=== PATIENT | male | born 1950 | race Two or more races ===

== ENCOUNTER 2024-03-13 08:25 | Outpatient (AMB) | payer OTHER, SELFPAY ==
--- NOTE | 2024-03-13 08:33 | A.OFFVIS_ITS ---
Vital Signs 03/13/24 08:35 Height 5 ft 10 in Weight 224 lb 6.889 oz BMI 32.2 BP 122/74 Blood Pressure Location Lt brachial Pulse 61 Pulse Source Pulse Oximeter Pulse Oximetry (%) 96 Oxygen Delivery Method Room Air Intake Visit Reasons: RA/CM apt Intake Note: Patient presents for follow up on RA today. Allergies No Known Allergies Allergy (Verified 03/13/24 08:36) HPI HPI RA/CM apt: Details: Overdue for RTX by a month. Hard to make a fist. He has swelling in ankles, kn ees and hands daily. MS 1-1.5h Goes to the gym everyday He saw pulmonology a month ago. He reports he also had PFTs and CT chest done. Breathing is stable. [facility] Medical History (Updated 03/13/24 @ 09:28 by Bobby De Guzman MD) Rotator cuff disorder Diverticulitis ILD (interstitial lung disease) COPD (chronic obstructive pulmonary disease) Rheumatoid arthritis Surgical History (Updated 03/13/24 @ 08:41 by Georgie Iyer CMA) History of total left knee replacement Family History (Updated 03/13/24 @ 08:43 by Georgie Iyer CMA) Father Colon cancer Mother Elephantiasis Stroke Social History (Updated 03/13/24 @ 08:43 by Georgie Iyer CMA) Alcohol intake: never Patient Tobacco Use Status: Current everyday Tobacco user Cigarette Packs Per Day: 10 Review of Systems Const All systems reviewed & are unremarkable except as noted in HPI and below Physical Exam Vital Signs: Last Vital Signs Pulse 61 03/13/24 08:35 BP 122/74 03/13/24 08:35 Pulse Ox 96 03/13/24 08:35 Oxygen Delivery Method Room Air 03/13/24 08:35 BMI result Body Mass Index 32.2 Const Other: General: Comfortable CVS: RRR Respiratory: clear to auscultation bilaterally. Good respiratory effort Skin: No lesions seen MSK: No tenderness of any joints. Ulnar deviation right hand right more pronounced than left hand. No synovitis. He is able to make a fist with both hands. Good range of motion of upper extremities and lower extremities. Assessment & Plan Assessment & Plan (1) Rheumatoid arthritis: Comment: History of rheumatoid arthritis with interstitial lung disease controlled on rituximab. He is overdue for rituximab by a month and has been experiencing increased joint pains and stiffness. Code(s): M06.9 - Rheumatoid arthritis, unspecified Category: Medical Plan: [facility] including last rituximab order with pretreatment given. As soon as it is received, I will order rituximab to be done at [facility] for disease and drug monitoring on high-risk medication ordered He will use prednisone 10 mg daily for a few days until joint pain and stiffness resolves. He is aware to use prednisone sparingly He will continue to use Tylenol 1300 mg at bedtime I am requesting pulmonology records of his last clinic note, CT and PFTs Return to clinic in 3 months (2) Other residential (current) drug therapy: Code(s): Z79.899 - Other adjunct faculty for medical terminology (current) drug therapy Category: Medical Plan: See above Orders: Orders Aspartate Amino Transferase 03/13/24 M06.9 - Rheumatoid arthritis, unspecified, Z79.899 - Other residential (current) drug therapy C Reactive Protein 03/13/24 M06.9 - Rheumatoid arthritis, unspecified, Z79.899 - Other adjunct faculty for medical terminology (current) drug therapy Erythrocyte Sedimentation Rate 03/13/24 M06.9 - Rheumatoid arthritis, unspecified, Z79.899 - Other adjunct faculty for medical terminology (current) drug therapy Hepatitis B,C Profile 03/13/24 M06.9 - Rheumatoid arthritis, unspecified, Z79.899 - Other residential (current) drug therapy T Spot TB 03/13/24 M06.9 - Rheumatoid arthritis, unspecified, Z79.899 - Other adjunct faculty for medical terminology (current) drug therapy Complete Blood Count Auto Diff 03/13/24 M06.9 - Rheumatoid arthritis, unspecified, Z79.899 - Other adjunct faculty for medical terminology (current) drug therapy Cyclic Citrullinated Peptide 03/13/24 M06.9 - Rheumatoid arthritis, unspecified, Z79.899 - Other residential (current) drug therapy TSH reflex Free T4 03/13/24 M06.9 - Rheumatoid arthritis, unspecified, Z79.899 - Other residential (current) drug therapy Alanine Aminotransferase 03/13/24 Z79.899 - Other adjunct faculty for medical terminology (current) drug therapy Creatinine 03/13/24 M06.9 - Rheumatoid arthritis, unspecified, Z79.899 - Other residential (current) drug therapy Rheumatoid Factor 03/13/24 M06.9 - Rheumatoid arthritis, unspecified, Z79.899 - Other adjunct faculty for medical terminology (current) drug therapy Medications: New prednisone Take 1 tablet daily for a few days until rheumatoid arthritis flare resolves 10 mg PO DIRECTED 30 tabs 0RF Coding Level of Care Code Est Pt Level 4 (71120) Complex EM visit Add On G2211 Diagnoses Rheumatoid arthritis M06.9 Other residential (current) drug therapy Z79.899
[2024-03-13 08:35] VITALS: BP 122/74; PULSE 61; O2SAT 96; BMI 32.2
--- OUTSIDE RECORDS SUMMARY | 2024-03-19 00:21 | XMS_ITS ---
Author Organization [facility] Address [address] [place] [address] Care Team Providers Care Mental Health Aides Teacher Name Role Phone Trish FAM, Marleny Primary Care Provider Shereen Ross Unavailable [phone] Marleny Chambers MD Unavailable Unavailable Encounters Encounter Location Date Provider Diagnosis [address] [address] 08/13/2023 Shereen Carlos Plan Of Treatment No Information Progress Notes * Amado LEONDOB: (73 yo M)Acc No.[id number]:08/13/2023 Progress Note Patient:Steffany JEFF[address] rd Provider:?Shereen Carlos DPM :1950???Age:73 Y???Sex:Male Tito e:08/13/2023 Address:[address] [place], [place] [id number] Pcp:Marleny Chambers MD Subjective: * Chief Complaints: * ??? * Medical History:? Objective: * Vitals:? Assessment: Plan: * Treatment: * Images: * The named appointment provid er may or may not be the originator of this progress note, and it is not deemed complete until electronically signed by the appointment provider. Sign off status: Pending * Provider:?Shereen Carlos DPM Date:?09/2023 Generated for Devin roach/Dwight/eTransmitting on:?03/19/2024 12:21 AM EST
--- OUTSIDE RECORDS SUMMARY | 2024-03-19 00:22 | XMS_ITS ---
Author Organization [facility] Address [address] [place] [address] Care Team Providers Care Youth Teacher Name Role Phone Trish FAM, Marleny Primary Care Provider Shereen Ross [phone] Marleny Chambers MD Unavailable Unavailable REASON FOR VISIT CX 08/13/23 Encounters Encounter Location Date Provider Diagnosis [address] [address] 08/01/2023 Shereen Carlos Plan Of Treatment No Information Progress Notes * Neptali LEONrocaelDOB: (73 yo M)Acc No.[id number]:08/01/2023 Patient:?Steffany Leon rd :1950???Age:73 Y???Sex:Male Address:[address] [place] [address], [address] * true * Date:? Generated for Printi doc/Dwight/eTransmitting on:?03/19/2024 12:21 AM EST
--- OUTSIDE RECORDS SUMMARY | 2024-03-19 00:22 | XMS_ITS | Patient Health Record ---
Author Organization [facility] Address [address] [place] [address] Care Team Providers Care Home Appraiser Name Role Phone Marleny Chambers MD Primary Care Provider Shereen oRss Unavailable [phone] Marleny Chambers MD Unavailable Unavailable Allergies No Known Allergies Reason For Referral No Information Medications Medication SIG (Take, Route, Frequency, Duration) Notes Start Date End Date Status Lamisil 250mg 1 tablet orally Once daily for 30 day(s) Active Tamsulosin HCl 0.4 MG 1 capsule Orally O nce a day Active Albuterol Active Anoro Ellipta 62.5-25 MCG/ACT 1 puff Inhalation Once a day Active Social History Tobacco Use: Social History Observation Description Date Details (start date - stop date) Former Smoker NA - NA Tobacco Use/Smoking Question Answer Notes Are you a: former smoker Additional Findings: Tobacco Non-User Current no n-smoker Tobacco use other than smoking: Question Answer Notes Are you an other tobacco user? No Encounters Encounter Location Date Provider Diagnosis [address] [address] 08/01/2023 Shereen Carlos Plan Of Treatment Pending Test Test Name Order Date *Liver Function Test (LFT) 11/27/2022 *Liver Function Test (LFT) 02/12/2023 Insurance Providers Payer Name Payer Address Payer Phone Subscriber Number Group Number Insured Name Patient Relationship to Insured Coverage Start Date Coverage End Date [employer] Medicare Open [address] [place] [address] [id number] Jasionko wski, Amado Self - patient is the insured Medical (General) History Medical History History ICD Code Rheumatoid Arthritis Diverticulitis Chicken pox Bone implants/screws Hepatitis Lung disease Osteoporosis Poor circulation Surgical History Surgery Date(Month/Year) left knee replacement
--- OUTSIDE RECORDS SUMMARY | 2024-03-19 00:22 | XMS_ITS ---
Author Organization [facility] Address [address] [place] [address] Care Team Providers Care Grease Renderer Name Role Phone Trish FAM, Marleny Primary Care Provider Shereen Ross [phone] Marleny Chambers MD Unavailable Unavailable REASON FOR VISIT eClinicalMobile: ePrescription Medications Medication SIG (Take, Route, Frequency, Duration) Notes Start Date End Date Status Lamisil 250mg 1 tablet orally Once daily for 30 day(s) Active Encounters Encounter Location Date Provider Diagnosis [address] [address] 03/12/2023 Shereen Carlos Plan Of Treatment Medication Medication Name Sig Start Date Stop Date Notes Lamisil 250mg 1 tablet orally Once daily for 30 day(s) Progress Notes * Amado LEONDOB: (72 yo M)Acc No.[id number]:03/12/2023 Patient:?Steffany Leon rd :1950???Age:72 Y???Sex:Male Address:[address] [place] [address], [address] * Refills? Refill Lamisil tablet, 250mg, orally, 30, 1 tablet, Once daily, 30 day(s), Refills=0 * true * Date:? Generated for Printi ng/Faxing/eTransmitting on:?03/19/2024 12:21 AM EST
--- OUTSIDE RECORDS SUMMARY | 2024-03-19 00:22 | XMS_ITS | Continuity of Care Document ---
Author Organization [facility] Address [address] [place] [address] Phone Care Team Providers Care Scalper Operator Name Role Phone Priscila FAM, Johnny Unavailable Unavailable Allergies, Adverse Reactions, Alerts Substance Reaction Status Criticality No Known Allergies Active No Inform ation Medications Medication Instructions Dosage Effective Dates (start - stop) Status Comments No Drug Therapy Prescribed Procedures Procedure Date Postop F/u Visit Incld Global 6 Duplex Scan-extrem Veins; Comp 16 Duplex Scan-extrem Veins; Uni/ 16 No Charge For Services Endovenous Rf, 1st Vein Unlisted Proc Vascular Surg Phleb Veins - Extrem - To 20 Offic Cons New/estab Mod-hi 60 16 Duplex Scan-extrem Veins; Comp 16 Advance Directives Directive Yes / No Effective Date File Name No Information Encounters Encounter Description Practice Location Reason(s) For Visit Diagnoses Date Provider Providers Copied on Encounter [facility], [address], [place], [place], [id number], [place] tel:[phone] No Information 6 Priscila Turner. [address], [place], [address], [place]. tel:[phone] Referring Provider: Aleisha Liu MD, [place] [address], [address]. tel:[phone] [facility], [address], [place], [place], [id number], [place] tel:[phone] [facility] [place] [facility] [place] Obesity, unspecifiedChroni c venous htn w oth comp of bilateral low extrmVaricose veins of bi low extrem w oth complications Feb-2 1-201 6 Adrian Ramiro. [address], [address], [place], [address], [place]. tel:[phone] Referring Provider: Aleisha Liu MD, [address] [place] [address], [address]. tel:[phone] [facility], [address], [place], [place], [id number], [place] tel:[phone] [facility] [place] [facility] [place] Chronic venous hypertension w oth comp of r low extremVaricose veins of right lower extremities with pain Feb- 1-201 6 Adrian Ramiro. [address], [address], [place], [address], [place]. tel:[phone] Referring Provider: Aleisha Liu MD, [address] [place] [address], [address]. tel:[phone] [facility], [address] [facility], [place], [place], [id number], [place] tel:[phone] [facility] [place] [facility] [place] Chronic venous hypertension w oth comp of r low extremVaricose veins of right lower extremities with pain Oct-1 0-201 6 Adrian Ramiro. [address], [address], [place], [address], [place]. tel:[phone] Referring Provider: Aleisha Liu MD, [address] [place] [address], [address]. tel:[phone] [facility], [address], [place], [place], [id number], [place] tel:[phone] [facility] [place] [facility] [place] No Information Oct-1 0-201 6 Adrian Ramiro. [address], [address], [place], [address], [place]. tel: Referring Provider: Aleisha Liu MD, [address] [place] [address], [address]. tel:[phone] [facility], [address], [place], [place], [id number], [place] tel:[phone] [facility] [place] [facility] [place] Varicose veins of right low extrm w oth complicationsVari cose veins of right lower extremities with pain Oct-0 5-201 6 Adrian Ramiro. [address], [address], [place], [address], [place]. tel:[phone] Referring Provider: Aleisha Liu MD, [address] [place] [address], [address]. tel:[phone] [facility], [address], [place], [place], [id number], [place] tel:[phone] [facility] [place] [facility] [place] Varicose veins of left lower extremities w oth complications Sep-2 8-201 6 Adrian Ramior. [address], [address], [place], [address], [place]. tel: Referring Provider: Aleisha Liu MD, [address] [place] [address], [address]. tel:[phone] [facility], [address], [place], [place], [id number], [place] tel:[phone] [facility] [place] [facility] [place] No Information Sep-1 4-201 6 Adrian Ramiro. [address], [address], [place], [address], [place]. tel:[phone] Referring Provider: Aleisha Liu MD, [address] [place] [address], [address]. tel:[phone] Offic Cons New/estab Mod-hi 60 [facility], [address] [place] [address], [id number], tel:[phone] [facility] Obesity, unspecifiedVarico se veins of left leg w/ edemaSpider nevus 6 Adrian Ramiro. [address], [address], [place], [facility], . tel:[phone] Referring Provider: Aleisha Liu MD, [address] [place] [address], [facility]. tel:[phone] [facility], [address] [place] [address], [id number], tel:[phone] [facility] Chronic venous htn w oth comp of bilateral low extrmVaricose veins of bi low extrem w oth complications 6 Adrian Arzolao. [address], [facility] [address], [place], [address], . tel:[phone] Referring Provider: Aleisha Liu MD, [address] [place] [address], [address]. tel:[phone] Family History Family Member Type Diagnosis Age At Onset No Information Payers Payer name Insurance type Covered alliance party ID Authoriza tion(s) No Information Social History Type Description Quantity Date Captured Comments Sex Male Smoking Status No Information Chief Complaint And Reason For Visit No Information Reason For Referral Reason For Referral No Information Plan Of Treatment Date Type Action Status Referral Ordered: Duplex Scan-extrem Veins; Comp Bilateral leg ordered History Of Present Illness Encounter Date Complaint History Of Prese nt Illness No Information Functional Status Date Functional Assessmen t No Information Medications Administered Medication Instructions Dosage Effective Dates (start - stop) Status Comments No Drug Therapy Prescribed Instructions Date Instruction Additional Infor mation Routine exercise program Continue compression stocking us e Pre and post instructions review ed and provided Assessments Type Assessment Date No Information Patient Care Teams Name Effective Dates (start - stop) Status Members No Information
== END 2024-03-13 09:11 | disposition home or self-care (01) ==
PROVIDERS: Visit Provider Internal Medicine Rheumatology
DX: M06.9 Rheumatoid arthritis, unspecified (principal); Z79.899 Other long term (current) drug therapy
CPT/HCPCS: 99214; G2211

== ENCOUNTER 2024-03-17 11:13 | Outpatient (REF) | payer MEDICARE, SELFPAY ==
[2024-03-17 11:40] LABS: MANUAL DIFF FLAG NO
[2024-03-17 12:02] LABS: Basophils Absolute Auto 0.1 X10*3/uL (0.0-0.2); Basophils Percent Auto 0.6 % (0-2); Eosinophils Absolute Auto 0.3 X10*3/uL (0.0-0.4); Eosinophils Percent Auto 2.4 % (0-4); Imm Gran Abs Auto 0.05 X10*3/uL (0.00-0.03); Imm Gran Pct Auto 0.4 % (0.0-0.4); Lymphocytes Percent Auto 17.5 % (20-40); Mean Corpuscular HGB Conc 34.7 g/dl (31.0-36.0); Mean Corpuscular Hemoglobin 31.1 pg (27.0-33.0); Mean Corpuscular Volume 89.7 fL (80.0-98.0); Mean Platelet Volume 9.7 fL (9.4-12.4); Monocytes Absolute Auto 1.2 X10*3/uL (0.1-1.2); Monocytes Percent Auto 10.5 % (2-11); Neutrophils Absolute Auto 7.7 x10*3/uL (2.0-8.3); Neutrophils Percent Auto 68.6 % (45-73); Platelet Count 252 X10*3/uL (160-400); Red Blood Count 5.46 X10*6/uL (4.60-5.80); Red Cell Distribution Width 14.7 % (11.0-16.0); White Blood Count 11.2 X10*3/uL (4.8-10.8)
[2024-03-17 12:37] LABS: Erythrocyte Sedimentation Rate 11 MM/HR (0-15)
[2024-03-17 12:44] LABS: Rheumatoid Factor 32.8 IU/mL (<15.0)
[2024-03-17 12:52] LABS: Alanine Aminotransferase 18 U/L (0-40); Aspartate Amino Transferase 20 U/L (5-37); C Reactive Protein 0.94 mg/dL (< or = 0.50); Estimated Glomerular Filt Rate > 60
[2024-03-17 13:13] LABS: TSH reflex Free T4 1.82 uIU/mL (0.32-4.0)
[2024-03-17 13:18] LABS: HBS Num1 878.36 mIU/mL (0-7.99); HBc Num1 5.17 S/CO (0.00-0.79); HBsAGNum1 0.41 S/CO (0.00-0.99); Hepatitis B Surface Antigen Negative (Negative); ~HepC Num1 13.78 S/CO (0.00-0.79); ~Hepatitis B Surface Antibody REACTIVE (Nonreactive); ~Hepatitis C Antibody Reactive (Nonreactive)
[2024-03-17 14:28] LABS: HBc Num2 5.18 S/CO; HBc Num3 5.25 S/CO; Hepatitis B Core Antibody Reactive (Nonreactive)
--- OUTSIDE RECORDS SUMMARY | 2024-03-19 15:08 | XMS_ITS | Continuity of Care Document ---
Author Organization [facility] Address [address] [place] [address] Phone Care Team Providers Care Cattle Trader Name Role Phone Priscila FAM, Johnny Unavailable [...] Copied on Encounter [facility], [address], [place], [place], [id number], [place] tel:[phone] No Information 6 Priscila Turner. [address] [facility] [address], [place], [address], [place]. tel:[phone] Referring Provider: Aleisha Liu MD, [place] [address], [address]. tel:[phone] [facility], [address], [place], [place], [id number], [place] tel:[phone] [facility] [place] [facility] [place] Obesity, unspecifiedChroni c venous htn w oth comp of bilateral low extrmVaricose veins of bi low extrem w oth complications Feb-2 1-201 6 Adrian Ramiro. [address], [address], [place], [address], [place]. tel:[phone] Referring Provider: Aleisha Liu MD, [address] [place] [address], [address]. tel:[phone] [facility], [address], [place], [place], [id number], [place] tel:[phone] [facility] [place] [facility] [place] Chronic venous hypertension w oth comp of r low extremVaricose veins of right lower extremities with pain Feb- 1-201 6 Adrian Ramiro. [address], [address], [place], [address], [place]. tel:[phone] Referring Provider: Aleisha Liu MD, [address] [place] [address], [address]. tel:[phone] [facility], [address] [facility], [place], [place], [id number], [place] tel:[phone] [facility] [place] [facility] [place] Chronic venous hypertension w oth comp of r low extremVaricose veins of right lower extremities with pain Oct-1 0-201 6 Adrian Ramiro. [address], [address], [place], [address], [place]. tel:[phone] Referring Provider: Aleisha Liu MD, [address] [place] [address], [address]. tel:[phone] [facility], [address], [place], [place], [id number], [place] tel:[phone] [facility] [place] [facility] [place] No Information Oct-1 0-201 6 Adrian Ramiro. [address], [address], [place], [address], [place]. tel: Referring Provider: Aleisha Liu MD, [address] [place] [address], [address]. tel:[phone] [facility], [address], [place], [place], [id number], [place] tel:[phone] [facility] - [place] [facility] [place] Varicose veins of right low extrm w oth complicationsVari cose veins of right lower extremities with pain Oct-0 5-201 6 Adrian Ramiro. [address], [address], [place], [address], [place]. tel:[phone] Referring Provider: Aleisha Liu MD, [address] [place] [address], [address]. tel:[phone] [facility], [address], [place], [place], [id number], [place] tel:[phone] [facility] [place] [facility] [place] Varicose veins of left lower extremities w oth complications Sep-2 8-201 6 Adrian Ramiro. [address], [address], [place], [address], [place]. tel: Referring Provider: Aleisha Liu MD, [address] [place] [address], [address]. tel:[phone] [facility], [address], [place], [place], [id number], [place] tel:[phone] [facility] - [place] [facility] [place] No Information Sep-1 4-201 6 Adrian Ramiro. [address], [address], [place], [address], [place]. tel:[phone] Referring Provider: Aleisha Liu MD, [address] [place] [address], [address]. tel:[phone] Offic Cons New/estab Mod-hi 60 [facility], [address] [place] [address], [id number], tel:[phone] [facility] Obesity, unspecifiedVarico se veins of left leg w/ edemaSpider nevus 6 Adrian Ramiro. [address], [address], [place], [facility], . tel:[phone] Referring Provider: Aleisha Liu MD, [address] [place] [address], [facility]. tel:[phone] [facility], [address] [place] [address], [id number], tel:[phone] [facility] Chronic venous htn w oth comp of bilateral low extrmVaricose veins of bi low extrem w oth complications 6 Adrian Arzolao. [address], [facility] [address], [place], [address], . tel:[phone] Referring Provider: Aleisha Liu MD, [address] [place] [address], [address]. tel:[phone] Family History Family Member Type Diagnosis Age At Onset No Information Payers Payer name Insurance type Covered democrat ID Authoriza tion(s) No Information Social History [...]
[2024-03-20 03:48] LABS: TS Negative Control Passed; TS Panel A 0; TS Panel B 1; TS Positive Control Passed; TSpotTB Negative (Negative)
[2024-03-20 16:14] LABS: Cyclic Citrullinated Peptide 143 UNITS
== END 2024-03-17 11:14 | disposition home or self-care (01) ==
LOC: HO.LAB 11:13
PROVIDERS: PCP Family Medicine; Visit Provider Internal Medicine Rheumatology
DX: M06.9 Rheumatoid arthritis, unspecified (principal); Z79.899 Other long term (current) drug therapy
CPT/HCPCS: 36415; 82565; 84443; 84450; 84460; 85025; 85652; 86140; 86200; 86431; 86481; 86704; 86706; 86803; 87340

== ENCOUNTER 2024-04-05 09:06 | Outpatient (REF) | payer MEDICARE, SELFPAY ==
--- OUTSIDE RECORDS SUMMARY | 2024-04-05 09:12 | XMS_ITS ---
Author Organization [facility] Address [address] [place] [address] Care Team Providers Care Fitness Director Name Role Phone Trish FAM, Marleny Primary Care Provider Shereen Ross [phone] Marleny Chambers MD Unavailable Unavailable REASON FOR VISIT eClinicalMobile: ePrescription Medications Medication SIG (Take, Route, Frequency, Duration) Notes Start Date End Date Status Lamisil 250mg 1 tablet orally Once daily for 30 day(s) Active Encounters Encounter Location Date Provider Diagnosis [address] [address] 03/12/2023 Shereen Carlos Plan Of Treatment Medication Medication Name Sig Start Date Stop Date Notes Lamisil 250mg 1 tablet orally Once daily for 30 day(s) Progress Notes * Neptali LEONrocaelDOB: (72 yo M)Acc No.[id number]:03/12/2023 Patient:?Steffany Leon rd :1950???Age:72 Y???Sex:Male Address:[address] [place] [address], [address] * Refills? Refill Lamisil tablet, 250mg, orally, 30, 1 tablet, Once daily, 30 day(s), Refills=0 * true * Date:? Generated for Printi ng/Faxing/eTransmitting on:?04/05/2024 09:11 AM EST
--- OUTSIDE RECORDS SUMMARY | 2024-04-05 09:12 | XMS_ITS ---
Author Organization [facility] Address [address] [place] [address] Care Team Providers Care Water Tender Name Role Phone Trish FAM, Marleny Primary Care Provider Shereen Ross Unavailable [phone] Marleny Chambers MD Unavailable Unavailable Encounters Encounter Location Date Provider Diagnosis [address] [address] 08/13/2023 Shereen Carlos Plan Of Treatment No Information Progress Notes * Amado LEONDOB: (73 yo M)Acc No.[id number]:08/13/2023 Progress Note Patient:Steffany JE[address] rd Provider:?Shereen Carlos DPM :1950???Age:73 Y???Sex:Male Tito e:08/13/2023 Address:[address] [place], [place] [address] Pcp:Marleny Chambers MD Subjective: * Chief Complaints: [...] Carlos DPM Date:?09/2023 Generated for Devin roach/Dwight/eTransmitting on:?04/05/2024 09:11 AM EST
--- OUTSIDE RECORDS SUMMARY | 2024-04-05 09:12 | XMS_ITS ---
Author Organization [facility] Address [address] [place] [address] Care Team Providers Care Window Assembler Name Role Phone Trish FAM, Marleny Primary Care Provider Shereen Ross [phone] Marleny Chambers MD Unavailable Unavailable REASON FOR VISIT CX 08/13/23 Encounters Encounter Location Date Provider Diagnosis [address] [address] 08/01/2023 Shereen Carlos Plan Of Treatment No Information Progress Notes * Neptali LEONrocaelDOB: (73 yo M)Acc No.[id number]:08/01/2023 Patient:?Steffany Leon rd :1950???Age:73 Y???Sex:Male Address:[address] [place] [address], [address] * true * Date:? Generated for Printi doc/Dwight/eTransmitting on:?04/05/2024 09:11 AM EST
--- OUTSIDE RECORDS SUMMARY | 2024-04-05 09:12 | XMS_ITS | Patient Health Record ---
Author Organization [facility] Address [address] [place] [address] Care Team Providers Care Filling Separator Name Role Phone Marleny Chambers MD Primary Care Provider Shereen Ross Unavailable [phone] Marleny Chambers MD Unavailable Unavailable Allergies No [...] No Encounters Encounter Location Date Provider Diagnosis [address] [address] 08/01/2023 Shereen Carlos Plan Of Treatment Pending Test Test Name Order Date *Liver Function Test (LFT) 11/27/2022 *Liver Function Test (LFT) 02/12/2023 Insurance Providers Payer Name Payer Address Payer Phone Subscriber Number Group Number Insured Name Patient Relationship to Insured Coverage Start Date Coverage End Date [employer] Medicare Open [address] [place] [address] [id number] Jasionko wski, Amado Self - patient is the insured Medical (General) History Medical History History ICD Code Rheumatoid Arthritis Diverticulitis Chicken pox Bone implants/screws Hepatitis Lung disease Osteoporosis Poor circulation Surgical History Surgery Date(Month/Year) left knee replacement
[2024-04-07 14:18] LABS: HCV Log PCR <1.18 NOT DETECTED Log IU/mL (NOT DETECTED); HepC Viral Load <15 NOT DETECTED IU/mL (NOT DETECTED)
== END 2024-04-05 09:07 | disposition home or self-care (01) ==
LOC: HO.LAB 09:06
PROVIDERS: PCP Family Medicine; Visit Provider Internal Medicine Rheumatology
DX: Z79.899 Other long term (current) drug therapy (principal)
CPT/HCPCS: 36415; 87522

== ENCOUNTER 2024-06-10 08:29 | Outpatient (REF) | payer MEDICARE, SELFPAY ==
[2024-06-10 18:11] LABS: MANUAL DIFF FLAG NO
[2024-06-10 18:45] LABS: Basophils Absolute Auto 0.1 X10*3/uL (0.0-0.2); Basophils Percent Auto 0.9 % (0-2); Eosinophils Absolute Auto 0.3 X10*3/uL (0.0-0.4); Eosinophils Percent Auto 4.1 % (0-4); Hematocrit 49.4 % (42.0-52.0); Hemoglobin 16.8 g/dl (14.0-18.0); Imm Gran Abs Auto 0.04 X10*3/uL (0.00-0.03); Imm Gran Pct Auto 0.5 % (0.0-0.4); Lymphocytes Absolute Auto 1.5 X10*3/uL (1.2-4.9); Lymphocytes Percent Auto 19.9 % (20-40); Mean Corpuscular Hemoglobin 31.4 pg (27.0-33.0); Mean Corpuscular Volume 92.3 fL (80.0-98.0); Mean Platelet Volume 10.1 fL (9.4-12.4); Monocytes Percent Auto 12.6 % (2-11); Neutrophils Absolute Auto 4.8 x10*3/uL (2.0-8.3); Platelet Count 276 X10*3/uL (160-400); Red Blood Count 5.35 X10*6/uL (4.60-5.80); Red Cell Distribution Width 15.2 % (11.0-16.0); White Blood Count 7.7 X10*3/uL (4.8-10.8)
[2024-06-10 18:47] LABS: Alanine Aminotransferase 15 U/L (0-40); Aspartate Amino Transferase 23 U/L (5-37); C Reactive Protein 1.87 mg/dL (< or = 0.50); Estimated Glomerular Filt Rate > 60
[2024-06-10 19:33] LABS: Erythrocyte Sedimentation Rate 20 MM/HR (0-15)
== END 2024-06-10 08:30 | disposition home or self-care (01) ==
LOC: HO.HKASLDS 08:29
PROVIDERS: PCP Family Medicine; Visit Provider Internal Medicine Rheumatology
DX: M65.312 Trigger thumb, left thumb (principal); M06.9 Rheumatoid arthritis, unspecified; Z79.60 Long term (current) use of unspecified immunomodulators and immunosuppressants; Z79.899 Other long term (current) drug therapy
CPT/HCPCS: 20550; 36415; 82565; 84450; 84460; 85025; 85652; 86140; 99212; J2003; J3300

== ENCOUNTER 2024-06-10 08:29 | Outpatient (AMB) | payer MEDICARE, SELFPAY ==
--- NOTE | 2024-06-10 08:32 | MHC.OFFVIS ---
Vital Signs 06/10/24 08:35 Height 5 ft 10 in Weight 225 lb 8.526 oz BMI 32.4 BP 150/90 H Blood Pressure Location Lt brachial Position Sitting Intake Visit Reasons: 3 mo follow up Intake Note: PT presents today for a RA/CM follow up. Allergies No Known Allergies Allergy (Verified 06/10/24 08:35) HPI HPI 3 mo follow up: Details: He has triggering of his left thumb. He has a hard time utilizing his thumb. He has reduced movement of left thumb. He had cortisone injection 10 months ago from hand surgeon with initial benefit. He has pain mostly at night. During the day his pain is 2/10 intensity. At night he has pain 6.5/10 intensity. He has not sleep well. He has pain in his hands. Sometimes he has swelling. He attributes the symptoms to old age. In the morning when he gets up he has stiffness but it improves with movement. He takes 2 Tylenol Arthritis strength before bedtime. Denies worsening dyspnea. [facility] Medical History Rotator cuff disorder Diverticulitis ILD (interstitial lung disease) COPD (chronic obstructive pulmonary disease) Rheumatoid arthritis Surgical History History of total left knee replacement Family History Father Colon cancer Mother Elephantiasis Stroke Social History Alcohol intake: never Patient Tobacco Use Status: Current everyday Tobacco user Cigarette Packs Per Day: 10 Review of Systems Const All systems reviewed & are unremarkable except as noted in HPI and below Physical Exam Vital Signs: Last Vital Signs BP 150/90 H 06/10/24 08:35 BMI result Body Mass Index 32.4 Const Other: General: Comfortable CVS: RRR Respiratory: clear to auscultation bilaterally. Good respiratory effort Skin: No lesions seen MSK: Tender right 3rd and 4th MCP without synovitis. Ulnar deviation right hand right more pronounced than left hand. Nodule palpated left 1st palmar aspect of MCP. No triggering of fingers noted. He is able to make a fist with both hands. Good range of motion of upper extremities and lower extremities. Office Procedures AMB Joint Injection/Aspiration Joint Injection/Aspiration Details: Trigger finger left 1st Prep: site was prepped using aseptic technique Injected: 10 mg of, Kenalog, with 0.25 mL of and 1% plain lidocaine Procedure: The patient tolerated the procedure well. Postprocedure protocol was discussed with patient. Coding Additional procedure code (CPT) needed (CPT code 08969) Office Meds lidocaine (PF) 10 mg/mL (1 %) injection solution Performing Provider: Bobby De Guzman MD Performing Location: [facility] Administered by: Bobby De Guzman MD on 06/10/24 10:06 Dose Route Admin Location Dispensed Lot Number Expiration Date [facility] Map Colorer 2.5 mg Infiltration 2 mL [id number] [facility] Kenalog 40 mg/mL suspension for injection Performing Provider: Bobby De Guzman MD Performing Location: [facility] Administered by: Bobby De Guzman MD on 06/10/24 10:06 Dose Route Admin Location Dispensed Lot Number Expiration Date [facility] Map Colorer 10 mg intra-articular 1 mL AP [id number] [facility] Assessment & Plan Assessment & Plan (1) Rheumatoid arthritis: Comment: He has polyarthralgias mainly at night. No synovitis on exam. We discussed adding NSAID after dinner but patient declined because he does not want to add another medication to his regimen. We discussed conservative management. History of rheumatoid arthritis with interstitial lung disease on maintenance rituximab. Code(s): M06.9 - Rheumatoid arthritis, unspecified Category: Medical Plan: Labs for disease and drug monitoring on high-risk medication ordered He has prednisone 10 mg tablets to use when he has a flare for a few days. He will call office if flare worsens He will continue to use Tylenol 1300 mg at bedtime He will call office if pain in his hands at night worsens to consider adding NSAID to his regimen Continue rituximab 1 g day 0 and 14 every 6 months Return to clinic in 3 months (2) Trigger finger of left thumb: Code(s): M65.312 - Trigger thumb, left thumb Category: Medical Plan: Patient received cortisone injection to treat trigger finger (3) Other jail (current) drug therapy: Code(s): Z79.899 - Other jail (current) drug therapy Category: Medical Plan: See above Orders: Orders Alanine Aminotransferase Today Z79.60 - exterminator termite (current) use of unspecified immunomodulators and immunosuppressants Aspartate Amino Transferase Today Z79.60 - exterminator termite (current) use of unspecified immunomodulators and immunosuppressants Erythrocyte Sedimentation Rate Today Z79.899 - Other extermination supervisor (current) drug therapy Complete Blood Count Auto Diff Today Z79.60 - exterminator termite (current) use of unspecified immunomodulators and immunosuppressants Creatinine Today Z79.60 - half-way (current) use of unspecified immunomodulators and immunosuppressants C Reactive Protein Today Z79.899 - Other extermination supervisor (current) drug therapy AMB Joint Injection/Aspiration Today M65.312 - Trigger thumb, left thumb, Z79.899 - Other jail (current) drug therapy Coding Level of Care Code Est Pt Level 4 (86131) Complex EM visit Add On G2211 Diagnoses Rheumatoid arthritis M06.9 Trigger finger of left thumb M65.312 Other jail (current) drug therapy Z79.899
[2024-06-10 08:35] VITALS: BP 150/90; BMI 32.4
--- OUTSIDE RECORDS SUMMARY | 2024-06-10 08:53 | XMS_ITS ---
Author Organization [facility] Address [address] [place] [address] Care Team Providers Care Engineer Chief Name Role Phone Trish FAM, Marleny Primary Care Provider Shereen Ross Unavailable [phone] Marleny Chambers MD Unavailable Unavailable Encounters Encounter Location Date Provider Diagnosis [address] [address] 08/13/2023 Shereen Carlos Plan Of Treatment No Information Progress Notes * Amado LEONDOB: (73 yo M)Acc No.[id number]:08/13/2023 Progress Note Patient:Steffany JEFFERSON rd Provider:?Shereen Carlos DPM :1950???Age:73 Y???Sex:Male Tito e:08/13/2023 Address:[address] [place], [place] [id number] Pcp:Marleny Chambers MD Subjective: * Chief Complaints: [...] Carlos DPM Date:?09/2023 Generated for Devin roach/Dwight/eTransmitting on:?06/10/2024 08:53 AM EST
--- OUTSIDE RECORDS SUMMARY | 2024-06-10 08:53 | XMS_ITS | Clinical Summary ---
Author Organization [facility] Address [address] [place] [address] Care Team Providers Care Bridge Maintenance Worker Name Role Phone Marleny Chambers MD Primary Care Provider [phone] Allergies No known active allergies Medications Medication Sig Dispensed Refills Start Date End Date Status dicyclomine (BENTYL) 10 MG capsuleIndications:L ower abdominal pain Take 1 capsule (10 mg total) by mouth 3 (three) times a day as needed for cramping. 270 capsule 1 12/09/2019 Active Active Problems Problem Noted Date Diagnosed Date Lower abdominal pain 11/07/2019 Assessment & Plan (11/07/2019 2:15 PM EDT): Has recurrent attacks of lower abdominal pain- bilaterally Occurs every month Ongoing since episode of diverticulitis one year ago ([facility]) I wonder if he has developed symptomatic uncomplicated diverticular disease. Gut dysbiosis is also a possibility. Finally constipation could be resulting in distress as well. Plan: 1. CT of the A/P to rule out any post diverticular process. 2. Start miralax daily. 3. Use prn bentyl- as little as necessary during an actual flare- he is aware that bentyl could worsen his constipation 4. If all of these measures fail, will do colonoscopy to look for SCAD- segmental colitis associated with diverticulosis which I could then tx with 5-ASA. He will call [facility] to schedule CT scan. Diverticulitis 11/07/2019 Assessment & Plan (11/07/2019 2:15 PM EDT): Documented episode in 2019 at [facility] by CT Responded to abx Chronic idiopathic constipation 11/07/2019 Assessment & Plan (11/07/2019 2:16 PM EDT): Says he has been irregular for a few years now Gets worse during an attack of lower abd pain Start miralax daily Stop fiber as he feels progressively bloated/gassy Immunizations Name Administration Dates Next Due Tdap 03/08/2009 Social History Tobacco Use Types Packs/Day Years Used Date Smoking Tobacco: Every Day Cigarettes 1 36 Sex and Gender Information Value Date Recorded Sex Assigned at Not on file Gender Identity Not on file Sexual Orientation Not on file Last Filed Vital Signs Vital Sign Reading Time Taken Comments Blood Pressure 130/76 11/07/2019 1:40 PM EDT Pulse - - Temperature 36.6 ??C (97.9 ??F) 11/07/2019 1:40 PM ED T Respiratory Rate - - Oxygen Saturation - - Inhaled Oxygen Concentration - - Weight 104 kg (229 lb) 11/07/2019 1:40 PM EDT Height 176.5 cm (5' 9.5 ) 05/13/2009 2:08 PM EST Body Mass Index - - Plan of Treatment Health Maintenance Due Date Last Done Comments Hepatitis C Virus Screening 1950 Colonoscopy 06/25/1996 Lung Cancer Screening (LDCT) 06/25/2001 Pneumococcal Vaccines 50+ (1 of 1 - PCV) 06/25/2001 Zoster (Shingles) Vaccine (1 of 2) 06/25/2001 DTaP/Tdap/Td Vaccines (2 - T d or Tdap) 03/08/2019 03/08/2009 Influenza Vaccine 11/08/2023 COVID-19 Vaccine ( - 2023-2 5 season) 2023 RSV Vaccine 60 years and old er and Patients (1 - 1-dose 75+ series) 06/25/2026 Abdominal Aortic Aneurysm (A AA) Screening Discontinued 11/18/2019 Hepatitis B Vaccines Aged Out No long er eligible based on patient's age to complete this topic Procedures Procedure Name Priority Date/Time Associated Diagnosis Comments CT ABDOMEN+PELVIS W/CONTRAST Routine 11/18/2019 4:38 PM EDT Lower abdominal pain Diverticulitis from Last 3 Months or Most Recently Relevant to Health Maintenance Results * CT Abdomen+pelvis w/contrast (11/18/2019 4:38 PM EDT) Anatomical Region Laterality Modality Abdomen, Pelvis Computed Tomogra phy 11/17/2019 9:00 AM EDT 11/17/2019 9:00 AM EDT Impressions 11/18/2019 4:38 PM EDT Sigmoid diverticulosis without diverticulitis. Bilateral renal cysts. No radiopaque urolith or hydronephrosis. Two atherosclerotic dilatations in the distal segment of the abdominal aorta. Thank you for referring your patient to us, Daniel Ambrose MD [phone] (Electronically Signed - 11/18/2019 16:38) Copy: JAGJIT SOUSA MD [facility] [address] [place] [address] Narrative 11/18/2019 4:38 PM EDT EXAMINATION: CT ABDOMEN AND PELVIS WITH CONTRAST CT CREATININE LAB TEST CT was done prior to exam and measures 0.9 mg/DL CLINICAL INFORMATION: Lower abdominal pain. Diverticulitis found on colonoscopy. ?? COMPARISON: None. ?? TECHNIQUE: Multidetector volumetric imaging was performed of the abdomen and pelvis following administration of oral and 100 mL Omnipaque 300 intravenous contrast. Sagittal and coronal reformatted images were obtained on the technologists workstation. I-STAT creatinine was performed before the exam and measures 0.9 mg/DL. DLP: 728 mGy-cm FINDINGS: LUNG BASES: There is platelike atelectasis or scarring in both lung bases. There is lingular atelectasis, as well. The heart size is normal. ?? LIVER, GALLBLADDER, AND BILIARY TREE: The liver is normal in size, shape, and attenuation. No focal hepatic lesion or biliary ductal dilatation is present. There are scattered small radiopaque gallstones on a contracted gallbladder. ?? PANCREAS: Unremarkable. ?? SPLEEN: Unremarkable. ?? ADRENAL GLANDS: Unremarkable. ?? KIDNEYS AND URETERS: The kidneys are normal in size, shape, and attenuation. No hydronephrosis, hydroureter, or calculi seen. No perinephric stranding. There is a 6 mm hypodensity interpolar region left kidney and 1.1 cm lesion midpole cortex right kidney. They measure cyst density. ?? BLADDER: Unremarkable. ?? GASTROINTESTINAL TRACT: There is scattered sigmoid diverticulosis with no mural thickening seen. No pericolic fat stranding seen. The rest of the colon appears unremarkable. The small bowel loops are normal caliber. The stomach is nondistended and appears unremarkable. Appendix is normal caliber. ?? ABDOMINAL WALL: No significant hernia is appreciated. ?? LYMPH NODES: Normal. VASCULAR: There are 2 saccular dilatations of the distal abdominal aorta measuring 2.9 x 2.8 cm, axial image 43/2, and most distal segment measuring 3.2 x 3.4 cm, axial image 48/2. The common iliac arteries are normal caliber. PELVIC VISCERA: The prostate is normal size. No free fluid or free air seen. OSSEOUS STRUCTURES: There are degenerative disc changes and vacuum disc phenomenon L3-L4 and L4-L5 disc levels with mild ventral spondylosis. Also visualized is mild ventral spondylosis throughout the lower dorsal and upper lumbar spine. No lytic or sclerotic process seen. There is mild facet joint arthropathy L4-L5 and L3-L4 disc levels. ?? Procedure Note Daniel Ambrose MD - 10/05/2021 EXAMINATION: CT ABDOMEN AND PELVIS WITH CONTRAST CT CREATININE LAB TEST CT was done prior to exam and measures 0.9 mg/DL CLINICAL INFORMATION: Lower abdominal pain. Diverticulitis found on colonoscopy. COMPARISON: None. TECHNIQUE: Multidetector volumetric imaging was performed of the abdomen and pelvis following administration of oral and 100 mL Omnipaque 300 intravenous contrast. Sagittal and coronal reformatted images were obtained on the technologists workstation. I-STAT creatinine was performed before theexam and measures 0.9 mg/DL. DLP: 728 mGy-cm FINDINGS: LUNG BASES: There is platelike atelectasis or scarring in both lungbases. There is lingular atelectasis, as well. The heart size is normal. LIVER, GALLBLADDER, AND BILIARY TREE: The liver is normal in size, shape,and attenuation. No focal hepatic lesion or biliary ductal dilatation ispresent. There are scattered small radiopaque gallstones on a contractedgallbladder. PANCREAS: Unremarkable. SPLEEN: Unremarkable. ADRENAL GLANDS: Unremarkable. KIDNEYS AND URETERS: The kidneys are normal in size, shape, andattenuation. No hydronephrosis, hydroureter, or calculi seen. No perinephricstranding. There is a 6 mm hypodensity interpolar region left kidney and 1.1 cmlesion midpole cortex right kidney. They measure cyst density. BLADDER: Unremarkable. GASTROINTESTINAL TRACT: There is scattered sigmoid diverticulosis withno mural thickening seen. No pericolic fat stranding seen. The rest of thecolon appears unremarkable. The small bowel loops are normal caliber. Thestomach is nondistended and appears unremarkable. Appendix is normal caliber. ABDOMINAL WALL: No significant hernia is appreciated. LYMPH NODES: Normal. VASCULAR: There are 2 saccular dilatations of the distal abdominal aorta measuring 2.9 x 2.8 cm, axial image 43/2, and most distal segmentmeasuring 3.2 x 3.4 cm, axial image 48/2. The common iliac arteries are normalcaliber. PELVIC VISCERA: The prostate is normal size. No free fluid or free airseen. OSSEOUS STRUCTURES: There are degenerative disc changes and vacuum disc phenomenon L3-L4 and L4-L5 disc levels with mild ventral spondylosis.Also visualized is mild ventral spondylosis throughout the lower dorsal andupper lumbar spine. No lytic or sclerotic process seen. There is mild facetjoint arthropathy L4-L5 and L3-L4 disc levels. IMPRESSION: Sigmoid diverticulosis without diverticulitis. Bilateral renal cysts. No radiopaque urolith or hydronephrosis. Two atherosclerotic dilatations in the distal segment of the abdominalaorta. Thank you for referring your patient to us, Daniel Ambrose MD [phone] (Electronically Signed - 11/18/2019 16:38) Copy: JAGJIT SOUSA MD [facility]- [address] [id number] Jagjit Sousa MD IMG CT ORDERABLES from Last 3 Months or Most Recently Relevant to Health Maintenance Care Teams Bridge Maintenance Worker Relationship Specialty Start Date End Date Marleny Chambers MD [address] [facility] [address] [place] [address] PCP - General Family Medicine 10/27/19
--- OUTSIDE RECORDS SUMMARY | 2024-06-10 08:54 | XMS_ITS | Clinical Summary ---
Author Organization [facility] Address [address] [place] [address] Care Team Providers Care Reel Cutter Name Role Phone Marleny Chambers MD Primary Care Provider [phone] Surgical History Surgery Date Site/Laterality Comments TOTAL KNEE ARTHROPLASTY PROCEDURE: SC ARTHRP KNE CONDYLE&PLATU MEDIAL&LAT COMPARTMENTS OTHER SURGICAL HISTORY PROCEDURE: ARTHROSCOPY PROCEDURE NEC OTHER SURGICAL HISTORY 08/08/2021 PROCEDURE: ---- OTHER ----; COMMENT: colonoscopy OTHER SURGICAL HISTORY PROCEDURE: SC BRONCHOSCOPY W/TRANSBRONCHIAL LUNG BX 1 LOBE; COMMENT: VATS right sided lung wedge x3 Medical History Medical History Date Comments Rheumatoid arthritis (CMS/HCC) D X:Rheumatoid arthritis (HCC); COMMENT: immunosuppresive therapy since 2017 SOB (shortness of breath) DX:SOB (shortness of breath) Pulmonary fibrosis (CMS/HCC) DX: Pulmonary fibrosis (HCC) COPD (chronic obstructive pu lmonary disease) (CMS/HCC) DX:COPD (chronic obstructive pulmonary disease) (HCC) Emphysema, unspecified (CMS/HCC) DX:Emphysema, unspecified (HCC) Somnolence DX:Somnolence Nicotine addiction DX:Nicotine a ddiction BPH (benign prostatic hyperplasia) DX:BPH (benign prostatic hyperplasia) Osteoarthritis DX:Osteoarthriti s History of hepatitis C DX:Histor y of hepatitis C H/O varicose veins DX:H/O varico se veins GERD (gastroesophageal reflux disease) DX:GERD (gastroesophageal reflux disease) Nocturnal hypoxemia DX:Nocturnal hypoxemia Hypoxemia DX:Hypoxemia Interstitial lung disease (CMS/HCC) DX:Interstitial lung disease (HCC) Social History Tobacco Use Types Packs/Day Years Used Date Smoking Tobacco: Former Cigarettes Q uit: 01/07/2023 Alcohol Use Standard Drinks/Week Comments Not Currently 0 (1 standard drink = 0.6 oz pur e alcohol) Sex and Gender Information Value Date Recorded Sex Assigned at Not on file Legal Sex Male 8:28 PM EST Gender Identity Not on file Sexual Orientation Not on file Obstetrics History Last Filed Vital Signs Vital Sign Reading Time Taken Comments Blood Pressure 108/70 03/26/2023 8:27 AM EST Sitting L Arm Pulse 88 03/26/2023 8:27 AM EST Temperature - - Respiratory Rate - - Oxygen Saturation - - Inhaled Oxygen Concentration - - Weight 92.8 kg (204 lb 9.6 oz) 03/26/2023 8:27 AM EST Height 177.8 cm (5' 10 ) 03/26/2023 8:2 7 AM EST Body Mass Index 29.36 03/26/2023 8:27 AM EST Plan of Treatment Health Maintenance Due Date Last Done Comments DTaP,Tdap,and Td Vaccines (1 - Tdap) 06/25/1970 Pneumococcal Vaccine: 50+ Ye ars (1 of 1 - PCV) 06/25/2001 Zoster Vaccines (1 of 2) 06/25/2001 Abdominal Aortic Aneurysm (A AA) Screen 03/11/2022 Cholesterol Screening (Lipid Panel) 03/11/2022 Colorectal Cancer Screening: Colonoscopy 03/11/2022 Depression Screening 03/11/2022 Falls Risk Assessment 03/11/2022 Hepatitis C Screening 03/11/2022 Social Influencers of Health Screening 03/11/2022 COVID-19 Vaccine ( - 2023-2 5 season) 2023 Influenza Vaccine (#1) 2023 RSV Immunization Patients 60 + Years Old (1 - 1-dose 75+ series) 06/25/2026 HIB Vaccines Aged Out No longer eligi ble based on patient's age to complete this topic HPV Vaccines Aged Out No longer eligi ble based on patient's age to complete this topic Hepatitis A Vaccines Aged Out No long er eligible based on patient's age to complete this topic Hepatitis B Vaccines Aged Out No long er eligible based on patient's age to complete this topic IPV Vaccines Aged Out No longer eligi ble based on patient's age to complete this topic MMR Vaccines Aged Out No longer eligi ble based on patient's age to complete this topic Meningococcal ACWY Vaccine Aged Out N o longer eligible based on patient's age to complete this topic Meningococcal B Vacine Aged Out No lo nger eligible based on patient's age to complete this topic RSV Immunization Patients Un luis 20 months Aged Out No longer eligible b ased on patient's age to complete this topic Varicella Vaccines Aged Out No longer eligible based on patient's age to complete this topic Care Teams Reel Cutter Relationship Specialty Start Date End Date Marleny Chambers MD PCP - General Internal Medicine 04/26/21
--- OUTSIDE RECORDS SUMMARY | 2024-06-10 08:54 | XMS_ITS ---
Author Organization [facility] Address [address] [place] [address] Care Team Providers Care Timber Harvester Operator Name Role Phone Trish FMA, Marleny Primary Care Provider Shereen Ross [phone] Marleny Chambers MD Unavailable Unavailable REASON FOR VISIT eClinicalMobile: ePrescription Medications Medication SIG (Take, Route, Frequency, Duration) Notes Start Date End Date Status Lamisil 250mg 1 tablet orally Once daily for 30 day(s) Active Encounters Encounter Location Date Provider Diagnosis [address] [address] 03/12/2023 Shereen Carlos Plan Of Treatment Medication Medication Name Sig Start Date Stop Date Notes Lamisil 250mg 1 tablet orally Once daily for 30 day(s) Progress Notes * Neptali LEONrocaelDOB: (72 yo M)Acc No.[id number]:03/12/2023 Patient:?Steffany Leon rd :1950???Age:72 Y???Sex:Male Address:[address] [place] [address], [address] * Refills? Refill Lamisil tablet, 250mg, orally, 30, 1 tablet, Once daily, 30 day(s), Refills=0 * true * Date:? Generated for Printi ng/Faxing/eTransmitting on:?06/10/2024 08:54 AM EST
--- OUTSIDE RECORDS SUMMARY | 2024-06-10 08:54 | XMS_ITS | Data Portability ---
Author Organization [facility], [facility] Address [address] [place] [address] Care Team Providers Care Impregnator Operator Name Role Phone NATHANMITUL KWOK Primary Care Provider [phone] Assessment Encounter Date Assessment Date Assessment LastModified by Organization Details LastModified Time 06/27/2023 06/27/2023 I am seeing the patient today under the supervision of who was available but who did not see the patient. Chief Complaint The patient presents today for recheck of right knee osteoarthritis. Is known to have knee arthritis treated conservatively to this point with 3 months relief of symptoms. Presents today for recheck secondary to increased knee pain. Past Medical/Surgical History Reviewed today, otherwise unchanged per intake sheet. Physical Findings General Appearance: ?? Well developed. ?? In no acute distress. Knee: General/bilateral : ?? No laxity of the knee. Right Knee: ? ? Medial aspect was tender on palpation. ?? No erythema. ?? No warmth. right Knee: ? ? Medial aspect was tender on palpation. ?? No erythema. ?? No warmth. Musculoskeletal Scales: General/bilateral : ? ? Mild effusion noted. Neurological: ?? Oriented to time, place, and person. Gait And Stance: ?? Normal. Psychiatric: ?? Mood was appropriate to the affect. right knee 0-120 degrees of flexion with discomfort. Assessment ? ? Osteoarthritis of knee -right knees Plan More than 50% of todays visit was spent on direct patient counseling regarding their knee condition and treatment options both operative with knee arthroplasty and non-operative, including oral medications and injection therapy. After discussion, my clinical decision was to go forth with an intra-articular cortisone injection. After explaining risks and benefits, under meticulous aseptic technique, the right knee was injected with, 1cc of Kenalog 40mgs and 4 cc of Marcaine 1/4%. They tolerated the procedures well. Post injection precautions reviewed. Follow up with us in 3 months for further discussion of total knee replacement surgery versus continued conservative treatment. [email or web address] Not available 06/27/2023 08:31:37 Plan of Treatment Reminders Order Date Submit Date Provider Last Modified By Organization Details Last Modified Time Details Appointments RECHECK 15 2024 08:30A M Rajeev Matthews PA-C Not available Not available Not available Lab None recorded . Referral None recorded . Procedures None recorded . Surgeries None recorded . Imaging None recorded . Medication Orders None recorded . Patient TargetsNo targets recorded. Patient InstructionsNo instructions recorded. Reason for Referral None Reported. Results Created Date Observation Date Name Description Value Unit Range Abnormal Flag Note LastModifiedBy Organization Detail LastModifiedTime 12/08/19 24 04/17/2023 imagi ng/ben singleton tic resul t No observ ation record ed. [email or web address] Not Available 11/09 06:06:29 Result Notes None recorded. 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 4 11:58:37 Problem Notes None recorded. Procedures Surgical History Date Name Laterality Status Provider Name and Address Organization Details Recorded Time 5 Knee Kenalog 1cc L/R completed Rajeev Matthews PA-C [address], [place], [address], [facility] 04/17/2024 07:46:43 4 Sports Knee 4&1 completed Rajeev Matthews PA-C [address], [place], [address], [facility] 01/09/2024 07:54:53 4 Small Joint Kenalog Injection, L/R completed Carmen Persaud, [employer] [address], [place], [address], [facility] 10/15/2023 16:05:34 4 Trigger Finger Kenalog Injection completed Carmen Persaud [employer] [address], [place], [address], [facility] 10/15/2023 16:05:07 4 Sports Knee 4&1 completed Rajeev Matthews PA-C [address], [place], [address], [facility] 08/08/2023 07:46:08 4 Sports Knee 4&1 completed Rajeev Matthews PA-C [address], [place], [address], [facility] 06/27/2023 08:31:21 Imaging Results Imaging Date Name Status LastModified by Organiz ation Details LastModified Time 04/17/2023 imaging/diag nostic result completed [email or web address] Information not available 12/08/2023 06:06:29 Procedure Notes None recorded. Medical Equipment None Reported. Allergies No known drug allergies Medications Name Sig Start Date Stop Date Status Note LastModified by Organization Details LastModified Time prednisone 10 mg tablet TAKE 1 TABLET BY MOUTH DAILY UNTIL RHEUMETOI D ARTHRITIS FLARES RESOLVES active Not Available Not Available No t Available albuterol sulfate 2.5 mg/3 mL (0.083 %) solution for nebulizatio n USE 1 VIAL VIA NEBULIZER EVERY 6 HOURS NEEDED FOR WHEEZING active Not Available Not Available No t Available prednisone 5 mg tablet TAKE 1 TABLET ORALLY TWICE A DAY FOR 1 WEEK THEN 1 TABLET ONCE A DAY FOR 1 WEEK active Not Available Not Available No t Available metronidazo le 500 mg tablet TAKE 1 TABLET BY MOUTH TWICE A DAY FOR 7 DAYS active Not Available Not Available No t Available fexofenadin e 180 mg tablet TAKE 1 TABLET BY MOUTH EVERY DAY active Not Available Not Available No t Available ciprofloxac in 500 mg tablet TAKE 1 TABLET BY MOUTH EVERY 12 HOURS FOR 7 DAYS active Not Available Not Available No t Available terbinafine HCl 250 mg tablet TAKE 1 TABLET BY MOUTH ONCE DAILY active Not Available Not Available No t Available tamsulosin 0.4 mg capsule TAKE 2 CAPSULES BY MOUTH EVERY DAY active Not Available Not Available No t Available pseudoephed rine-guaife nesin ER 80-700 mg tablet,exte nded release DO NOT DRIVE WHILE TAKING THIS MEDICATIO N 2013 active Statu s: 'Curr ent'; Not Available Not Available Not Available methylpredn isolone 4 mg tablets in a dose pack TAKE 6 TABLETS ON DAY 1 DIRECTED ON PACKAGE AND DECREASE BY 1 TAB EACH DAY FOR A TOTAL OF 6 DAYS active Not Available Not Available No t Available albuterol sulfate HFA 90 mcg/actuati on aerosol inhaler TAKE 2 PUFFS BY MOUTH EVERY 4 TO 6 HOURS NEEDED active Not Available Not Available No t Available amoxicillin 875 mg-potassiu m clavulanate 125 mg tablet TAKE 1 TABLET BY MOUTH EVERY 8 HOURS WITH FOOD OR MILK FOR 14 DAYS active Not Available Not Available No t Available oxycodone 5 mg tablet 1 TABLET BY MOUTH EVERY 6 HOURS NEEDED FOR PAIN, DO NOT DRINK OR OPERATE MACHINERY active Not Available Not Available No t Available nicotine 21mg/24hr-1 4mg/24hr-7m g/24hr daily transderm patches,seq uentl APPLY TOPICALLY DAILY DIRECTED active Not Available Not Available No t Available Cialis Cialis 20MG Tablet 09/19 completed Statu s: 'Disc ontin ued'; Not Available Not Available Not Available Anoro Ellipta 62.5 mcg-25 mcg/actuati on powder for inhalation INHALE 1 PUFF BY MOUTH DAILY active Not Available Not Available No t Available Vitals Date Recorded Body height Body mass index (BMI) Body weight Provider Name and Address Organization Details Last Updated DateTime 06/27/2023 177.8 cm 29.6 kg/m2 79404.03 g Rajeev Matthews PA-C [address], [place], [address], [facility] 06/27/2023 08:24:43 Date Recorded Body height Body mass index (BMI) Body weight Provider Name and Address Organization Details Last Updated DateTime 10/15/2023 177.8 cm 30.1 kg/m2 61588.4 g CAROL ANN NAVA [facility] 10/15/2023 14:53:46 Date Recorded Body height Provider Name an d Address Organization Details Last Updated DateTime 01/09/2024 177.8 cm MARY CARNES [facility] 01/09/2024 08:26:18 Date Recorded Body height Provider Name an d Address Organization Details Last Updated DateTime 04/17/2024 177.8 cm MARY CARNES [facility] 04/17/2024 09:00:09 Social History None recorded. Functional Status None recorded. Mental Status None recorded. Family History Nothing Reported. Medical History No medical history recorded. Past Encounters Encounter ID Performer Location Encounter Start Date Encounter Closed Date Diagnosis/Indication Diagnosis SNOMED-CT Code Diagnosis ICD10 Code Diagnosis Note [id number] Rajeev Matthews PA-C [address] [place] [address] 06/27/2023 08:17:43 06/27/2023 08:41:35 Osteoarthritis of right knee joint 2630928701 97553 M17.11 [id number] Rajeev Matthews PA-C [address] [place] [address] 10/09/2023 12:25:56 11/01/2023 11:21:41 Osteoarthritis of right knee joint 0338464874 06250 M17.11 [id number] Carmen Persaud, [employer] [address] [place] [address] 10/15/2023 14:12:06 10/29/2023 15:49:43 Arthritis of first carpometacarpal joint of right hand 6549923287 435835 M13.841 Trigger th umb of left hand 1035302767 30482 M65.321 [id number] ERNIE Chicas [address] [place] [address] 01/09/2024 08:23:31 02/01/2024 10:18:51 Osteoarthritis of right knee joint 0952850504 49836 M17.11 [id number] ERNIE Chicas [address] [place] [address] 04/17/2024 08:52:30 04/30/2024 08:22:46 Osteoarthritis of right knee joint 5007445708 14762 M17.11 Health Concerns Section Related Observation LastModified by Organization Detai ls LastModified Time None Recorded Concern Status LastModified by Organization Details LastModified Time None Recorded Advance Directives Directive None Recorded Payers Encounter Date Sequence Insurance Name Policy Number Policy Leonardo Covered Member ID Leonardo Member ID Guarantor Name 06/27/2023 1 [employer] (MEDICARE REPLACEMENT PPO) [id number] Amado Herring [id number] Amado Herring 10/09/2023 1 [employer] (MEDICARE REPLACEMENT PPO) [id number] Amado Herring [id number] Amado Herring 10/15/2023 1 [employer] (MEDICARE REPLACEMENT PPO) [id number] Amado Herring [id number] Amado Herring 01/09/2024 1 [employer] (MEDICARE REPLACEMENT PPO) [id number] Amado Herring [id number] Amado Herring 04/17/2024 1 [employer] (MEDICARE REPLACEMENT PPO) [id number] Amado Herring [id number] Amado Herring Notes Date Note Type Note Provider Name and Address Organization Details Recorded Time 10/09/2023 text/html I am seeing the patient today under the supervision of {{Susana Brady* }} who was available but who did not see the patient. Chief Complaint The patient presents today for recheck of {{left right*}} knee osteoarthritis. Is known to have knee arthritis treated conservatively to this point with {{1* 2 3}} months relief of symptoms. Presents today for recheck secondary to increased knee pain. Past Medical/Surgical History Reviewed today, otherwise unchanged per intake sheet. Physical Findings General Appearance: ?? Well developed. ?? In no acute distress. Musculoskeletal System: Knee: General/bilateral: ?? No laxity of the knee. Right Knee: ? ? Medial aspect was tender on palpation. ?? No erythema. ?? No warmth. Left Knee: ? ? Medial aspect was tender on palpation. ?? No erythema. ?? No warmth. Musculoskeletal Scales: General/bilateral: ? ? Mild effusion noted. Neurological: ?? Oriented to time, place, and person. Gait And Stance: ?? Normal. Psychiatric: ?? Mood was appropriate to the affect. Left knee 0-120 degrees of flexion with discomfort. Assessment ? ? Osteoarthritis of knee - Plan More than 50% of todays visit was spent on direct patient counseling regarding their knee condition and treatment options both operative with knee arthroplasty and non-operative, including oral medications and injection therapy. After discussion, my clinical decision was to go forth with an intra-articular cortisone injection. After explaining risks and benefits, under meticulous aseptic technique, the knee was injected with, 1cc of Kenalog 40mgs and 4 cc of Marcaine 1/4%. They tolerated the procedures well. Post injection precautions reviewed. Follow up with us in 3 months for further discussion of total knee replacement surgery versus continued conservative treatment. Rajeev Matthews PA-C [address], [place], [address], [facility] 10/09/2023 12:43:48 10/15/2023 text/html Amado is a 73-year-old gentleman who is here today for evaluation of his bilateral thumbs. He has known for CMC arthritis and developed some triggering of his left thumb. He is here today for further evaluation. Carmen Persaud, [employer] [address], [place], [address], [facility] 10/15/2023 16:06:24 01/09/2024 text/html I am seeing the patient today under the supervision of Dr.{{Kelly* Brady }} who was available but who did not see the patient. Chief Complaint The patient presents today for recheck of {{left right*}} knee osteoarthritis. Is known to have knee arthritis treated conservatively to this point with {{1 2 3*}} months relief of symptoms. Presents today for recheck secondary to increased knee pain. Past Medical/Surgical History Reviewed today, otherwise unchanged per intake sheet. Physical Findings General Appearance: ?? Well developed. ?? In no acute distress. Musculoskeletal System: Knee: General/bilateral: ?? No laxity of the knee. Right Knee: ? ? Medial aspect was tender on palpation. ?? No erythema. ?? No warmth. Left Knee: ? ? Medial aspect was tender on palpation. ?? No erythema. ?? No warmth. Musculoskeletal Scales: General/bilateral: ? ? Mild effusion noted. Neurological: ?? Oriented to time, place, and person. Gait And Stance: ?? Normal. Psychiatric: ?? Mood was appropriate to the affect. Left knee 0-120 degrees of flexion with discomfort. Assessment ? ? Osteoarthritis of knee - Plan More than 50% of todays visit was spent on direct patient counseling regarding their knee condition and treatment options both operative with knee arthroplasty and non-operative, including oral medications and injection therapy. After discussion, my clinical decision was to go forth with an intra-articular cortisone injection. After explaining risks and benefits, under meticulous aseptic technique, the knee was injected with, 1cc of Kenalog 40mgs and 4 cc of Marcaine 1/4%. They tolerated the procedures well. Post injection precautions reviewed. Follow up with us in 3 months for further discussion of total knee replacement surgery versus continued conservative treatment. Rajeev Matthews PA-C [address] [facility] [address], [place], [address], [facility] 01/10/2024 09:29:50 04/17/2024 text/html I am seeing the patient today under the supervision of Dr.{{Kelly* Brady }} who was available but who did not see the patient. Chief Complaint The patient presents today for recheck of {{left right*}} knee osteoarthritis. Is known to have knee arthritis treated conservatively to this point with {{1 2 3*}} months relief of symptoms. Presents today for recheck secondary to increased knee pain. Past Medical/Surgical History Reviewed today, otherwise unchanged per intake sheet. Physical Findings General Appearance: ?? Well developed. ?? In no acute distress. Musculoskeletal System: Knee: General/bilateral: ?? No laxity of the knee. Right Knee: ? ? Medial aspect was tender on palpation. ?? No erythema. ?? No warmth. Left Knee: ? ? Medial aspect was tender on palpation. ?? No erythema. ?? No warmth. Musculoskeletal Scales: General/bilateral: ? ? Mild effusion noted. Neurological: ?? Oriented to time, place, and person. Gait And Stance: ?? Normal. Psychiatric: ?? Mood was appropriate to the affect. Left knee 0-120 degrees of flexion with discomfort. Assessment ? ? Osteoarthritis of knee - Plan More than 50% of todays visit was spent on direct patient counseling regarding their knee condition and treatment options both operative with knee arthroplasty and non-operative, including oral medications and injection therapy. After discussion, my clinical decision was to go forth with an intra-articular cortisone injection. After explaining risks and benefits, under meticulous aseptic technique, the knee was injected with, 1cc of Kenalog 40mgs and 4 cc of Marcaine 1/4%. They tolerated the procedures well. Post injection precautions reviewed. Follow up with us in 3 months for further discussion of total knee replacement surgery versus continued conservative treatment. Rajeev Matthews PA-C [address] [facility] [address], [place], [address], [place] [facility] 04/17/2024 16:49:46
--- OUTSIDE RECORDS SUMMARY | 2024-06-10 08:54 | XMS_ITS | Clinical Summary ---
Author Organization [facility] Address [address] [place] [address] Care Team Providers Care Resin Shaver Name Role Phone Unavailable Primary Care Provider Unavailabl e Social History Tobacco Use Types Packs/Day Years Used Date Smoking Tobacco: Never Assessed Sex and Gender Information Value Date Recorded Sex Assigned at Not on file Gender Identity Not on file Sexual Orientation Not on file Job Start Date Occupation Industry Not on file Not on file Not on file Plan of Treatment Not on file
--- OUTSIDE RECORDS SUMMARY | 2024-06-10 08:54 | XMS_ITS ---
Author Organization [facility] Address [address] [place] [address] Care Team Providers Care Typesetters Printer Name Role Phone Trish FAM, Marleny Primary Care Provider Shereen Ross [phone] Marleny Chambers MD Unavailable Unavailable REASON FOR VISIT CX 08/13/23 Encounters Encounter Location Date Provider Diagnosis [address] [address] 08/01/2023 Shereen Carlos Plan Of Treatment No Information Progress Notes * Neptali LEONrocaelDOB: (73 yo M)Acc No.[id number]:08/01/2023 Patient:?Steffany Leon rd :1950???Age:73 Y???Sex:Male Address:[address] [place] [address], [address] * true * Date:? Generated for Wojciechi doc/Dwight/eTransmitting on:?06/10/2024 08:54 AM EST
--- OUTSIDE RECORDS SUMMARY | 2024-06-10 08:54 | XMS_ITS | Patient Health Record ---
Author Organization [facility] Address [address] [place] [address] Care Team Providers Care Heel Layer Name Role Phone Marleny Chambers MD Primary Care Provider Shereen Ross Unavailable [phone] Marleny Chambers MD Unavailable Unavailable Allergies No [...] No Encounters Encounter Location Date Provider Diagnosis [address] [address] 08/01/2023 Shereen Carlos Plan Of Treatment Pending Test Test Name Order Date *Liver Function Test (LFT) 11/27/2022 *Liver Function Test (LFT) 02/12/2023 Insurance Providers Payer Name Payer Address Payer Phone Subscriber Number Group Number Insured Name Patient Relationship to Insured Coverage Start Date Coverage End Date [employer] Medicare Open [address] [place] [address] [id number] Jasionko wski, Amado Self - patient is the insured Medical (General) History Medical History History ICD Code Rheumatoid Arthritis Diverticulitis Chicken pox Bone implants/screws Hepatitis Lung disease Osteoporosis Poor circulation Surgical History Surgery Date(Month/Year) left knee replacement
== END 2024-06-10 09:14 | disposition home or self-care (01) ==
PROVIDERS: PCP Family Medicine; Visit Provider Internal Medicine Rheumatology
DX: M06.9 Rheumatoid arthritis, unspecified (principal); M65.312 Trigger thumb, left thumb; Z79.899 Other long term (current) drug therapy
CPT/HCPCS: 99214; G2211

== ENCOUNTER 2024-09-30 14:29 | Outpatient (AMB) | payer MEDICARE, SELFPAY ==
[2024-09-30 14:32] VITALS: BP 90/50; BMI 26.3
--- NOTE | 2024-09-30 14:32 | MHC.OFFVIS ---
Vital Signs 09/30/24 14:32 Height 5 ft 10 in Weight 183 lb BMI 26.3 BP 90/50 L Blood Pressure Location Lt brachial Position Sitting Intake Visit Reasons: follow up (MD oreilly appt slot) Intake Note: PT presents today for a RA/CM follow up. Allergies No Known Allergies Allergy (Verified 09/30/24 14:36) HPI HPI follow up (MD oreilly appt slot): Details: As soon as I entered the room, patient was very rude in his tone and requested medical release form because he is moving to [place] and wanted to his records transfer there. I asked him if he has a commercial ocean clammer's appointment. He told me that he has not even reached there. He has not scheduled any appointment with any physician. I obtained information for patient to contact medical records with a phone number as soon as he has an appointment with a PCP or commercial ocean clammer in [place] for transfer of care. I encouraged him to schedule an appointment with a commercial ocean clammer in [place] as soon as possible. As I was leaving the room to obtain information, patient was speaking profanity in aggressive tone. I quickly gave him the information, which satisfied patient. He thanked me and left the office. See 08/19/2024 workload message. This is another incident where patient was speaking rudely with profanity to my nurse while she was trying to help coordinate care for him. [facility] Medical History (Updated 09/30/24 @ 16:02 by Bobby De Guzman MD) Rotator cuff disorder Diverticulitis ILD (interstitial lung disease) COPD (chronic obstructive pulmonary disease) Rheumatoid arthritis Surgical History (Updated 09/30/24 @ 14:38 by Liz Archuleta CMA) History of partial colectomy History of total left knee replacement Family History Father Colon cancer Mother Elephantiasis Stroke Social History Alcohol intake: never Patient Tobacco Use Status: Current everyday Tobacco user Cigarette Packs Per Day: 10 Physical Exam Vital Signs: Last Vital Signs BP 90/50 L 09/30/24 14:32 BMI result Body Mass Index 26.3 Const Other: General: Comfortable Skin: No obvious lesions seen MSK: Antalgic gait Assessment & Plan Assessment & Plan (1) Rheumatoid arthritis: Comment: History of rheumatoid arthritis with interstitial lung disease on maintenance rituximab. He had colorectal surgery (please refer to 08/19/2024 correspondence with nurse workload message). Last rituximab 1g 04/23/2024 and 05/07/2024. Code(s): M06.9 - Rheumatoid arthritis, unspecified Category: Medical Plan: His treatment regimen for maintenance is rituximab 1 g day 0 and 14 every 6 months He will be moving to [place]. Information to contact medical records at [facility] given to patient. (2) [facility] [place] [facility] drug therapy: Code(s): Z79.899 - Other termite exterminator (current) drug therapy Category: Medical Plan: See above Coding Level of Care Code Est Pt Level 3 (75003) Complex EM visit Add On G2211 Diagnoses Rheumatoid arthritis M06.9 Other [place] [facility]current[facility] drug therapy Z79.899
--- OUTSIDE RECORDS SUMMARY | 2024-09-30 17:41 | XMS_ITS | Patient Health Record ---
Author Organization [facility] Address [address] [place] [address] Care Team Providers Care Bullet Swaging Machine Adjuster Name Role Phone Yung Jesus Unavailable [phone] Reason For Referral No Information Plan Of Treatment No Information
== END 2024-09-30 15:10 | disposition home or self-care (01) ==
LOC: HO.RHES 14:30
PROVIDERS: PCP Family Medicine; Visit Provider Internal Medicine Rheumatology
DX: M06.9 Rheumatoid arthritis, unspecified (principal); Z79.899 Other long term (current) drug therapy
CPT/HCPCS: 99213; G2211

== ENCOUNTER → 2024-09-30 14:29 | Outpatient (BNVA) | payer MEDICARE, SELFPAY | PROVIDERS: PCP Family Medicine; Visit Provider Internal Medicine Rheumatology | DX: M06.9 Rheumatoid arthritis, unspecified (principal); Z79.899 Other long term (current) drug therapy | CPT/HCPCS: 99212 ==